=== PATIENT | female | born 1935 | race Native Hawaiian/Other Pacific Islander ===

== ENCOUNTER 2016-10-01 02:57 | Emergency (ER) | payer SELFPAY ==
[2016-10-01] MEDS ORDERED: Albuterol-Ipratrop 3 mg / 0.5 (3 ml) UD ONE (03:08)
[2016-10-01 03:23] VITALS: O2SAT 95
--- NOTE | 2016-10-01 03:23 | C.PDOC ---
History Of Present Illness 81 year old female who presents to the ER with a complaint of lightheadedness that began 30 minutes [employer] while walking around in her house. The triage noticed she was wheezing and appeared short of breath; a nebulizer was given to her at that time. By the time of my evaluation, patient reported improvement to her wheezing and shortness of breath. Patient report her dizziness had also improved by the time of my evaluation. Denies fever, chills, nausea, chest pain , or headache. Time Seen by Provider: 10/01/16 03:00 Chief Complaint (Nursing): Shortness Of Breath History Per: Patient History/Exam Limitations: no limitations Onset/Duration Of Symptoms: Mins Current Symptoms Are (Timing): Still Present Initiating Event: Other (Not known) Current Respiratory Medications: None Associated Symptoms: Dizziness, Light-headedness. denies: Fever, Chills, Chest Pain Recent travel outside of the [place]: No Past Medical History Reviewed: Historical Data, Nursing Documentation, Vital Signs Vital Signs: Last Vital Signs Temp 98.3 F 10/01/16 04:42 Pulse 76 10/01/16 04:42 Resp 22 10/01/16 04:42 BP 144/88 10/01/16 04:42 Pulse Ox 95 10/01/16 04:46 - Medical History PMH: No Chronic Diseases Surgical History: No Surg Hx Family History: States: Unknown Family Hx - Social History Hx Alcohol Use: No Hx Substance Use: No - Immunization History Hx Tetanus Toxoid Vaccination: No Hx Influenza Vaccination: No Hx Pneumococcal Vaccination: No Review Of Systems Constitutional: Negative for: Fever, Chills Cardiovascular: Positive for: Light Headedness. Negative for: Chest Pain Gastrointestinal: Negative for: Nausea, Vomiting, Abdominal Pain Genitourinary: Negative for: Dysuria, Hematuria Skin: Negative for: Rash Neurological: Positive for: Dizziness. Negative for: Weakness, Numbness, Headache Physical Exam - Physical Exam Appears: Non-toxic, No Acute Distress Skin: Normal Color, Warm, Dry Head: Atraumatic, Normacephalic Oral Mucosa: Moist Neck: Normal, Supple Chest: No Tenderness Cardiovascular: Rhythm Regular, No Murmur Respiratory: Decreased Breath Sounds, No Accessory Muscle Use, No Rales, No Rhonchi, No Stridor, No Wheezing, Other (No respiratory distress) Gastrointestinal/Abdominal: Soft, No Tenderness Extremity: Normal ROM, Pedal Edema (Pitting, worse on left than right) Neurological/Psych: Oriented x3, Normal Speech, Normal Cognition, Other (No focal deficits) ED Course And Treatment - Laboratory Results Result Diagrams: 10/01/16 03:40 10/01/16 03:40 O2 Sat by Pulse Oximetry: 95 (Room air) Pulse Ox Interpretation: Normal Medical Decision Making Medical Decision Making: EKG, blood work, and CXR ordered. EKG: NSR 89, left axis deviation, ST depression, inferior leads bedside sono shows a compressible left common femoral vein. Patient refused CT scan and admission for further eval of her sx. she says she feel fine now. she appears well in no distress. she understands the risks and has full decision making capability at this time. Disposition - Disposition Referrals: Bin Funk MD [Staff Provider] - Disposition: HOME/ ROUTINE Disposition Time: 04:37 Condition: STABLE Instructions: Near Syncope (ED) Forms: General Discharge Instructions - Clinical Impression Clinical Impression: Near syncope - Scribe Statement The provider has reviewed the documentation as recorded by the Scribe King Moreno All medical record entries made by the Scribe were at my direction and personally dictated by me. I have reviewed the chart and agree that the record accurately reflects my personal performance of the history, physical exam, medical decision making, and the department course for this patient. I have also personally directed, reviewed, and agree with the discharge instructions and disposition.
[2016-10-01 03:47] LABS: BASO # 0.1 K/uL (0.0-0.2); EOS # 1.4 K/uL (0.0-0.7); EOS % 19.1 % (0.0-4.0); HEMOGLOBIN 10.4 g/dL (11.0-16.0); LYMPH # 1.6 K/uL (1.0-4.3); LYMPH % 21.1 % (20.0-40.0); MEAN CORPUSCULAR HEMOGLOBIN 23.7 pg (27.0-31.0); MEAN CORPUSCULAR HGB CONC 30.7 g/dL (33.0-37.0); MEAN PLATELET VOLUME 8.3 fL (7.2-11.7); MONO # 0.7 K/uL (0.0-0.8); MONO % 8.8 % (0.0-10.0); NEUT # 3.8 K/uL (1.8-7.0); NRBC % 0.1 % (0.0-2.0); RBC 4.42 Mil/uL (3.80-5.20); RED CELL DISTRIBUTION WIDTH 17.1 % (11.5-14.5); WHITE BLOOD COUNT 7.5 K/uL (4.8-10.8)
[2016-10-01 03:54] LABS: ALBUMIN 3.8 g/dL (3.5-5.0)
[2016-10-01 03:57] LABS: GFR AFRICAN-AMERICAN > 60; GFR NON-AFRICAN AMERICAN > 60
[2016-10-01 03:58] LABS: ALB/GLOB RATIO 1.1 (1.0-2.1); ALT/SGPT 20 U/L (9-52); AST/SGOT 15 U/L (14-36); BLOOD UREA NITROGEN 12 mg/dL (7-17); CALCIUM 8.6 mg/dl (8.6-10.4)
[2016-10-01 04:00] LABS: INR 1.1; PROTHROMBIN TIME 11.9 SECONDS (9.7-12.2)
[2016-10-01 04:07] LABS: B-TYPE NATRIURETIC PEPTIDE 249 pg/mL (0-900)
[2016-10-01 04:11] LABS: VENOUS BLOOD GAS PCO2 53 mmHg (40-60); VENOUS BLOOD GAS PO2 23 mm/Hg (30-55); VENOUS BLOOD PH 7.37 (7.32-7.43)
[2016-10-01 04:48] VITALS: BP 144/88; PULSE 76; RESP 22; TEMP 98.3
--- NOTE | 2016-10-01 08:13 | RAD ---
PROCEDURE: CHEST RADIOGRAPH, 1 VIEW HISTORY: Shortness of breath COMPARISON: None available. FINDINGS: LUNGS: Clear. PLEURA: No pneumothorax or pleural fluid seen. CARDIOVASCULAR: Normal. OSSEOUS STRUCTURES: No significant abnormalities. VISUALIZED UPPER ABDOMEN: Normal. OTHER FINDINGS: None. IMPRESSION: No active disease.
--- NOTE | 2016-10-01 12:25 | CARD ---
APPROVED REPORT EKG Measurement Heart [id number] ID [id number] <Conclusion> Normal sinus rhythm Possible Left atrial enlargement Left axis deviation Junctional ST depression, probably normal Abnormal ECG
== END 2016-10-01 04:41 | disposition home or self-care (01) ==
LOC: C.ER 02:57
DX: R55 Syncope and collapse (principal)

== ENCOUNTER 2016-10-03 22:43 | Emergency (ER) | payer SELFPAY ==
[2016-10-03] MEDS ORDERED: Albuterol-Ipratrop 3 mg / 0.5 (3 ml) UD ONE ×2 (22:54→23:40)
[2016-10-03] MEDS ORDERED: Albuterol-Ipratrop 3 mg / 0.5 (3 ml) UD INH STA ×2 (23:08→23:40)
--- NOTE | 2016-10-03 23:11 | C.PDOC ---
History Of Present Illness A 81 y/o F c/o sudden onset SOB. Denies chest pain, diaphoresis, lightheadedness , fever, chills, nausea, vomiting, or any other complaints. Time Seen by Provider: 10/03/16 23:08 Chief Complaint (Nursing): Shortness Of Breath History Per: Patient History/Exam Limitations: no limitations Onset/Duration Of Symptoms: Hrs Current Symptoms Are (Timing): Still Present Severity: Mild Recent travel outside of the [place]: No Additional History Per: Patient Past Medical History Reviewed: Historical Data, Nursing Documentation, Vital Signs Vital Signs: Last Vital Signs Temp 98.5 F 10/03/16 22:55 Pulse 103 H 10/04/16 02:27 Resp 20 10/04/16 02:27 BP 121/76 10/04/16 02:27 Pulse Ox 92 L 10/04/16 02:55 Family History: States: Unknown Family Hx - Social History Hx Alcohol Use: No Hx Substance Use: No - Immunization History Hx Tetanus Toxoid Vaccination: No Hx Influenza Vaccination: No Hx Pneumococcal Vaccination: No Review Of Systems Except As Marked, All Systems Reviewed And Found Negative. Constitutional: Negative for: Fever, Chills, Sweats Cardiovascular: Negative for: Chest Pain, Light Headedness Respiratory: Positive for: Shortness of Breath Gastrointestinal: Negative for: Nausea, Vomiting Physical Exam - Physical Exam Appears: Non-toxic, No Acute Distress Skin: Warm, Dry Head: Atraumatic, Normacephalic Eye(s): bilateral: Normal Inspection Cardiovascular: Rhythm Regular Respiratory: No Rales, Rhonchi (Bilateral), Wheezing (Bilateral), Other (Dyspnea ) Extremity: Pedal Edema (Bilateral edema), Capillary Refill (<2secs), No Deformity Neurological/Psych: Oriented x3, Normal Speech, Normal Cognition, Other Gait: Steady ED Course And Treatment - Laboratory Results Result Diagrams: 10/03/16 23:19 10/03/16 23:19 ECG: Interpreted By Me, Viewed By Me ECG Rhythm: Sinus Rhythm, Nonspecific Changes ECG Interpretation: No Acute Changes Interpretation Of ECG: NSR, non-spc ST-T changes. abnormal tracings Rate From EC O2 Sat by Pulse Oximetry: 92 (RA) Pulse Ox Interpretation: Normal Medical Decision Making Medical Decision Making: Impression: A 81 y/o F c/o sudden onset SOB. Plans: -EKG -Blood labs -CXR -IV fluids -Albuterol -PrednisoLONE Disposition Counseled Patient/Family Regarding: Diagnosis - Disposition Referrals: Bin Funk MD [Staff Provider] - Disposition: HOME/ ROUTINE Disposition Time: 02:52 Condition: STABLE Prescriptions: Albuterol HFA [Ventolin HFA 90 mcg/actuation (8 g)] 2 puff IH [id number] #1 inhaler Methylprednisolone [Medrol Dose Pack (21 tabs)] 4 mg PO DAILY #21 mg Instructions: Bronchospasm (ED) - POA Present On Arrival: None - Clinical Impression Clinical Impression: Recurrent bronchospasm - Scribe Statement The provider has reviewed the documentation as recorded by the Scribe Alverto wade All medical record entries made by the Scribe were at my direction and personally dictated by me. I have reviewed the chart and agree that the record accurately reflects my personal performance of the history, physical exam, medical decision making, and the department course for this patient. I have also personally directed, reviewed, and agree with the discharge instructions and disposition.
[2016-10-03 23:24] LABS: BASO # 0.1 K/uL (0.0-0.2); EOS # 1.9 K/uL (0.0-0.7); EOS % 18.9 % (0.0-4.0); HEMOGLOBIN 11.2 g/dL (11.0-16.0); LYMPH % 19.6 % (20.0-40.0); MEAN CELL VOLUME 77.3 fL (81.0-99.0); MEAN CORPUSCULAR HEMOGLOBIN 24.5 pg (27.0-31.0); MEAN CORPUSCULAR HGB CONC 31.7 g/dL (33.0-37.0); MEAN PLATELET VOLUME 8.4 fL (7.2-11.7); MONO % 9.9 % (0.0-10.0); NEUT # 5.2 K/uL (1.8-7.0); NEUT % 50.6 % (50.0-75.0); NRBC % 0.1 % (0.0-2.0); RBC 4.56 Mil/uL (3.80-5.20); WHITE BLOOD COUNT 10.2 K/uL (4.8-10.8)
[2016-10-03 23:34] LABS: ALBUMIN 4.1 g/dL (3.5-5.0)
[2016-10-03 23:36] LABS: GFR AFRICAN-AMERICAN > 60; GFR NON-AFRICAN AMERICAN 60
[2016-10-03 23:37] LABS: ALB/GLOB RATIO 1.1 (1.0-2.1); ALT/SGPT 18 U/L (9-52); AST/SGOT 20 U/L (14-36); BLOOD UREA NITROGEN 11 mg/dL (7-17); INR 1.1; PROTHROMBIN TIME 11.9 SECONDS (9.7-12.2)
[2016-10-03 23:38] LABS: CALCIUM 9.5 mg/dl (8.6-10.4)
[2016-10-03 23:45] LABS: B-TYPE NATRIURETIC PEPTIDE 256 pg/mL (0-900)
[2016-10-04] MEDS ORDERED: Albuterol-Ipratrop 3 mg / 0.5 (3 ml) UD ONE (00:05)
[2016-10-04] MEDS ORDERED: Iodixanol 320 MG/ML 100 ML BOTTLE IV ONE (00:29)
--- NOTE | 2016-10-04 08:55 | RAD ---
PROCEDURE: CHEST RADIOGRAPH, 1 VIEW HISTORY: SOB COMPARISON: Comparison is made to 10/01/2016 FINDINGS: LUNGS: No evidence of new infiltrate or consolidation in the lungs PLEURA: No pneumothorax or pleural fluid seen. CARDIOVASCULAR: Normal. OSSEOUS STRUCTURES: No significant abnormalities. VISUALIZED UPPER ABDOMEN: Normal. OTHER FINDINGS: None. IMPRESSION: No active disease.
--- NOTE | 2016-10-04 09:20 | CT ---
PROCEDURE: CT Chest with contrast (Pulmonary Angiogram) HISTORY: elevated D-dimer/ wheezing COMPARISON: None available. TECHNIQUE: Axial computed tomography images were obtained of the chest in the pulmonary arterial phase of enhancement. Coronal and sagittal reformatted images were created and reviewed. Intravenous contrast dose: 100 mL of Visipaque 320 Radiation dose: Total exam DLP = 122.48 mGy-cm. This CT exam was performed using one or more of the following dose reduction techniques: Automated exposure control, adjustment of the mA and/or kV according to patient size, and/or use of iterative reconstruction technique. FINDINGS: PULMONARY ARTERIES: Unremarkable. No pulmonary embolism. AORTA: No acute findings. No thoracic aortic aneurysm. LUNGS: There are scattered small less than 5 millimeter new noncalcified nodule seen in the lungs more prominent at the lower lobes. No evidence of pneumonia or mass lesion. PLEURAL SPACES: Unremarkable. No effusion or pneuomothorax. HEART: Unremarkable. No cardiomegaly. No significant pericardial effusion. LYMPH NODES: No lymphadenopathy. BONES, CHEST WALL: Unremarkable. No fracture or destructive lesion OTHER FINDINGS: Unremarkable. IMPRESSION: No evidence of pulmonary embolus. Scattered few small noncalcified nodules in the lungs. If clinically warranted 12 months follow-up reassessment by CT is suggested. Preliminary report was submitted by [facility].
[2016-10-04 12:17] VITALS: BP 121/76; PULSE 103; RESP 20; TEMP 98.5; O2SAT 92; BMI 17.9
--- NOTE | 2016-10-06 12:51 | CARD ---
APPROVED REPORT EKG Measurement Heart [id number] <Conclusion> Normal sinus rhythm Left axis deviation Nonspecific ST abnormality Abnormal ECG
== END 2016-10-04 03:04 | disposition home or self-care (01) ==
LOC: C.ER 22:43
DX: J98.01 Acute bronchospasm (principal)
CPT/HCPCS: 71010; 71275; 80053; 83880; 84484; 85025; 85378; 85610; 85730; 93005; 96374; 99285; J2930; Q9967